=== PATIENT | female | born 1990 | race African-American/Black ===

== ENCOUNTER 2023-04-20 16:39 | Emergency (ER) | payer SELFPAY ==
[~2023-04-20] VITALS: Ht 172.7 cm; Wt 77.1 kg
[2023-04-20 17:49] VITALS: TEMP 98.2; O2SAT 98
[2023-04-20 18:30] VITALS: BP 139/68; PULSE 88; RESP 17
[2023-04-20] MEDS ORDERED: IBUPROFEN 400MG TABLET PO ONE (18:30)
[2023-04-20 18:42] LABS: BASOPHILS % 0.4 % (0.0-2.0); EOSINOPHILS % 0.9 % (0.0-5.0); HEMATOCRIT. 38.1 % (36.0-48.0); HEMOGLOBIN. 12.6 g/dL (12.0-16.0); LYMPHOCYTES % 39.4 % (20.0-50.0); MEAN CORPUSCULAR HEMOGLOBIN 28.2 pg (28.0-32.0); MEAN CORPUSCULAR HGB CONC 33.1 g/dL (31.0-37.0); MEAN CORPUSCULAR VOLUME 85.1 fL (81.0-99.0); MEAN PLATELET VOLUME 9.7 fl (7.4-10.4); MONOCYTES % 9.7 % (2.0-8.0); NEUTROPHILS % 49.6 % (40.0-76.0); PLATELET 277 x1000/uL (130-400); RED BLOOD CELL COUNT 4.47 mill/uL (4.2-5.4); RED CELL DISTRIBUTION WIDTH 13.5 % (11.6-14.6); WHITE BLOOD COUNT 5.9 x1000/uL (4.5-11.0)
[2023-04-20 18:52] LABS: CHLORIDE 106 mEq/L (98-107); INDEX HEMOLYSI 1 (1-3); INDEX ICTERIC 1 (1-4); INDEX LIPEMIC 1 (1-3); POTASSIUM 4.1 mEq/L (3.5-5.1); SODIUM 135 mEq/L (136-145)
[2023-04-20 18:54] LABS: CALCIUM 9.4 mg/dL (8.5-10.1)
[2023-04-20 18:55] LABS: HCG SCREEN NEGATIVE
[2023-04-20 18:58] LABS: CARBON DIOXIDE 26 mEq/L (21-32); CREATININE 1.1 mg/dL (0.6-1.3); GLUCOSE 92 mg/dL (70-105); UREA NITROGEN BLOOD 17 mg/dL (7-21)
[2023-04-20] MEDS ORDERED: IBUP-2028 MT (19:46)
== END 2023-04-20 19:59 | disposition home or self-care (01) ==
LOC: ER 16:39
DX: M25.522 Pain in left elbow (principal)
CPT/HCPCS: 36415; 80048; 84703; 85025; 99283